=== PATIENT | female | born 2000 | race Two or more races ===

== ENCOUNTER → 2020-02-18 | Outpatient (CLI) | payer OTHER | END | disposition home or self-care (01) | LOC: PRENATAL 14:00 | PROVIDERS: ATTEND Obstetrics & Gynecology Maternal & Fetal Medicine | DX: O35.0XX1 Maternal care for (suspected) central nervous system malformation in fetus, fetus 1 (principal); O35.3XX1 Maternal care for (suspected) damage to fetus from viral disease in mother, fetus 1; O98.512 Other viral diseases complicating pregnancy, second trimester; Z36.89 Encounter for other specified antenatal screening; Z3A.21 21 weeks gestation of pregnancy ==

== ENCOUNTER 2020-03-28 12:54 | Inpatient (IN) | payer OTHER ==
[~2020-03-28] VITALS: Ht 162.6 cm; Wt 67.6 kg
[2020-03-28] MEDS ORDERED: PRENATAL CAPLE1 EAC1 (14:13)
== END 2020-03-29 10:11 | disposition home or self-care (01) | DRG 832 ==
LOC: LDR 12:54
PROVIDERS: ADMIT Specialist; ATTEND Specialist
PROC: 4A1HXFZ Monitoring of Products of Conception, Cardiac Rhythm, External Approach (ICD-10-PCS; principal; 2020-03-28)
PROC: BT4JZZZ Ultrasonography of Kidneys and Bladder (ICD-10-PCS; 2020-03-28)
DX: O99.891 Other specified diseases and conditions complicating pregnancy (principal); N20.1 Calculus of ureter; O23.32 Infections of other parts of urinary tract in pregnancy, second trimester; B95.1 Streptococcus, group B, as the cause of diseases classified elsewhere; Z3A.26 26 weeks gestation of pregnancy; Z20.822 Contact with and (suspected) exposure to COVID-19

== ENCOUNTER 2020-06-11 09:04 | Inpatient (IN) | payer OTHER ==
[~2020-06-11] VITALS: Ht 162.6 cm; Wt 2.3 kg
[~2020-06-11 09:04] MED LIST: PRENATAL CAPLE1 EAC1
[2020-06-11] MEDS ORDERED: CHILDREN'S ASPI81 MG PO (09:33)
[2020-06-11] MEDS ORDERED: NASAL MIST126 ML (09:33)
== END 2020-06-14 10:41 | disposition home or self-care (01) | DRG 788 ==
LOC: LDR 09:04 → OB/GYN 09:04
PROVIDERS: ADMIT Specialist; ATTEND Specialist
PROC: 10907ZC Drainage of Amniotic Fluid, Therapeutic from Products of Conception, Via Natural or Artificial Opening (ICD-10-PCS; 2020-06-11)
PROC: 4A1HXFZ Monitoring of Products of Conception, Cardiac Rhythm, External Approach (ICD-10-PCS; 2020-06-11)
PROC: 10D00Z1 Extraction of Products of Conception, Low, Open Approach (ICD-10-PCS; principal; 2020-06-11 11:00)
DX: O76 Abnormality in fetal heart rate and rhythm complicating labor and delivery (principal); Z37.0 Single live birth; Z3A.37 37 weeks gestation of pregnancy